=== PATIENT | female | born 1955 | race Two or more races ===

== ENCOUNTER 2025-04-01 12:40 | Inpatient (IN) | payer OTHER, MEDICAID ==
[~2025-04-01] VITALS: Ht 162.6 cm; Wt 96.6 kg
--- NOTE | 2025-04-01 13:34 | DVH ---
CT HEAD WITHOUT CONTRAST INDICATION: fall COMPARISON: None TECHNIQUE: CT of the head without intravenous contrast. RADIATION DOSE: CTDIvol: 56.21 mGy, DLP: 981.26 mGy*cm FINDINGS: There is no evidence of acute intracranial hemorrhage, extra-axial collection, mass effect, midline s hift, herniation or hydrocephalus. The ventricles, sulci and cisterns are age appropriate. The lopez -white differentiation is intact. The visualized paranasal sinuses and mastoid air cells are clear. The surrounding soft tissues and osseous structures are unremarkable. IMPRESSION: 1. No evidence of acute intracranial hemorrhage, mass effect or hydrocephalus.
[2025-04-01 13:47] LABS: Basophils # (auto) 0 10 ^3/uL (0-0.2); Basophils % (auto) 0.2 % (0.0-2.0); Eosinophils # (auto) 0.1 10 ^3/uL (0-0.8); Hemoglobin 16.3 g/dL (12.2-16.2); Lymphocytes # (auto) 2.3 10 ^3/uL (0.4-5.4); Lymphocytes % (auto) 32.5 % (10.0-50.0); Mean Corpuscular Hemoglobin 33.8 pg (28.0-32.0); Mean Corpuscular Hgb Conc. 35.4 g/dL (32.0-36.0); Mean Corpuscular Volume 95.5 fL (80.0-100.0); Monocytes # (auto) 0.8 10 ^3/uL (0-1.3); Monocytes % (auto) 10.9 % (0.0-12.0); Neutrophils # (auto) 3.9 10 ^3/uL (1.6-8.6); Neutrophils % (auto) 55.4 % (37.0-80.0); Nucleated Red Blood Cells % 0.1 %; Platelet Count (auto) 261 10^3/uL (140-450); Red Blood Cells 4.81 10^6/uL (4.0-5.20); Red Cell Distribution Width 14.4 % (11.8-14.3)
[2025-04-01 13:56] LABS: Chloride 101 mmol/L (98-107); Sodium 143 mmol/L (136-145)
[2025-04-01 13:57] LABS: Anion Gap 9 (5-15)
[2025-04-01 13:58] LABS: Calcium 9.9 mg/dL (8.7-10.4)
[2025-04-01 14:02] LABS: BUN/Creatinine Ratio 15.9 (10.0-20.0); Blood Urea Nitrogen 11 mg/dL (9-23); Glucose 94 mg/dL (74-106)
[2025-04-01 14:03] LABS: Carbon Dioxide 33 mmol/L (20-31); Potassium 3.3 mmol/L (3.5-5.1)
--- NOTE | 2025-04-01 16:23 | ED.PDOC ---
History of Present Illness HPI Comments 69-year-old female with PMHx HTN, HLD brought in by EMS presents with a chief complaint of headache and blurred vision x onset yesterday. Patient states that she went to get x-rays done yesterday and when coming off the radiology table, she fell down and hit her head. Patient is now reporting pain to her head and also some blurred vision. Patient denies any nausea, vomiting, or numbness/tingling. No other symptoms or modifying factors present at this time. 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 Family History Family History: Reviewed,noncontributory to illness Social History Smoker: Non-Smoker Alcohol: Denies ETOH Use Drugs: Denies Drug Use Lives In: Home Constitutional: denies: chills, diaphoresis, fatigue, fever, malaise, sweats, weakness, others EENTM: reports: blurred vision; denies: double vision, ear bleeding, ear discharge, ear drainage, ear pain, ear ringing, eye pain, eye redness, hearing loss, mouth pain, mouth swelling, nasal discharge, nose bleeding, nose congestion, nose pain, photophobia, tearing, throat pain, throat swelling, voice changes, others Respiratory: denies: cough, hemoptysis, orthopnea, SOB at rest, shortness of breath, SOB with excertion, stridor, wheezing, others Cardiovascular: denies: chest pain, dizzy spells, diaphoresis, Dyspnea on exertion, edema, irregular heart beat, left arm pain, lightheadedness, palpitations, PND, syncope, others Gastrointestinal: denies: abdomen distended, abdominal pain, blood streaked bowels, constipated, diarrhea, dysphagia, difficulty swallowing, hematemesis, melena, nausea, poor appetite, poor fluid intake, rectal bleeding, rectal pain, vomiting, others Genitourinary: denies: abnormal vagina bleeding, burning, dyspareunia, dysuria, flank pain, frequency, hematuria, incontinence, pain, , vagina discharge, urgency, others Neurological: reports: headache; denies: dizziness, fainting, left sided numbness, left sided weakness, numbness, paresthesia, pre-existing deficit, right sided numbness, right sided weakness, seizure, speech problems, tingling, tremors, weakness, others Musculoskeletal: denies: back pain, gout, joint pain, joint swelling, muscle pain, muscle stiffness, neck pain, others Integumetry: denies: bruises, change in color, change in hair/nails, dryness, laceration, lesions, lumps, rash, wounds, others Allergic/Immunocompromised: denies: Difficulty Healing, Frequent Infections, Hives, Itching, others Hematologic/Lymphatic: denies: anemia, blood clots, easy bleeding, easy bruising, swollen glands, others Endocrine: denies: excessive hunger, excessive sweating, excessive thirst, excessive urination, flushing, intolerance to cold, intolerance to heat, unexplained weight gain, unexplained weight loss, others Psychiatric: denies: anxiety, bipolar disorder, depression, hopeless, panic disorder, schizophrenia, sleepless, suicidal, others All Other Systems: Reviewed and Negative Physical Exam General Appearance: Moderate Distress HEENT: Normal ENT Inspection, Pharynx Normal, TMs Normal Neck: Full Range of Motion, Non-Tender, Normal, Normal Inspection Respiratory: Chest Non-Tender, Lungs Clear, No Accessory Muscle Use, No Respiratory Distress, Normal Breath Sounds Cardiovascular: No Edema, No JVD, No Murmur, No Gallop, Normal Peripheral Pulses, Regular Rate/Rhythm Breast Exam: Deferred Gastrointestinal: No Organomegaly, Non Tender, No Pulsatile Mass, Normal Bowel Sounds, Soft Genitalia: Deferred Pelvic: Deferred Rectal: Deferred Extremities: No calf tenderness, Normal capillary refill, No pedal edema Musculoskeletal : Apperance: Normal Neurologic: Alert, 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 Was a procedure done?: No EKG EKG : Pulse Rate (adult): 69 [place]: Normal Cardiac Rhythm: NSR Block: None Hypertrophy: LVH ST: Normal Differential Dx Considerations may include: Syncope, autonomic dysfunction, generalized weakness X-Ray, Labs, Meds, VS Vital Signs Date Time Temp Pulse Resp B/P (MAP) Pulse Ox O2 Delivery O2 Flow Rate FiO2 04/01/25 16:23 69 04/01/25 15:24 97.5 67 16 131/64 (86) 99 97.5 04/01/25 15:24 67 16 99 Room Air 04/01/25 12:48 98.0 73 16 151/91 (111) 98 98.0 04/01/25 12:41 69 Lab Test 04/01/25 13:17 Range/Units White Blood Count 7.0 4.4-10.8 10^3/uL Red Blood Count 4.81 4.0-5.20 10^6/uL Hemoglobin 16.3 H 12.2-16.2 g/dL Hematocrit 46.0 36.0-46.0 % Mean Corpuscular Volume 95.5 80.0-100.0 fL Mean Corpuscular Hemoglobin 33.8 H 28.0-32.0 pg Mean Corpuscular Hemoglobin Concent 35.4 32.0-36.0 g/dL Red Cell Distribution Width 14.4 H 11.8-14.3 % Platelet Count 261 140-450 10^3/uL Mean Platelet Volume 9.1 6.9-10.8 fL Neutrophils (%) (Auto) 55.4 37.0-80.0 % Lymphocytes (%) (Auto) 32.5 10.0-50.0 % Monocytes (%) (Auto) 10.9 0.0-12.0 % Eosinophils (%) (Auto) 1.0 0.0-7.0 % Basophils (%) (Auto) 0.2 0.0-2.0 % Neutrophils # (Auto) 3.9 1.6-8.6 10 ^3/uL Lymphocytes # (Auto) 2.3 0.4-5.4 10 ^3/uL Monocytes # (Auto) 0.8 0-1.3 10 ^3/uL Eosinophils # (Auto) 0.1 0-0.8 10 ^3/uL Basophils # (Auto) 0 0-0.2 10 ^3/uL Nucleated Red Blood Cells 0.1 % Sodium Level 143 136-145 mmol/L Potassium Level 3.3 L 3.5-5.1 mmol/L Chloride Level 101 98-107 mmol/L Carbon Dioxide Level 33 H 20-31 mmol/L Anion Gap 9 5-15 Blood Urea Nitrogen 11 9-23 mg/dL Creatinine 0.69 0.550-1.02 mg/dL Glomerular Filtration Rate Calc 93 >90 mL/min BUN/Creatinine Ratio 15.9 10.0-20.0 Serum Glucose 94 74-106 mg/dL Calcium Level 9.9 8.7-10.4 mg/dL IV Hep-Lock has been established The CBC and chemistry panel shows hypokalemia at 3.3 The patient was given potassium 40 mEq p.o. The CAT scan of the head shows no sign of any acute bleed At this time, the patient is being admitted with a diagnosis of autonomic dysfunction and blunt head trauma There is a concern because this patient is still somewhat unsteady on her gait Images Reviewed?: Images reviewed and evaluated by me Time of 1ST Reevaluation: 16:48 Reevaluation 1ST: Unchanged Time of 2ND Reevaluation: 17:55 Reevaluation 2ND: Unchanged Patient Education/Counseling: Diagnosis, Treatment, Prognosis Family Education/Counseling: No Family Present Departure 1 Departure Time of Disposition: 17:55 Impression: Primary Impression: Autonomic dysfunction Additional Impressions: Generalized weakness Blunt head trauma Qualified Codes: S09.8XXA - Other specified injuries of head, initial encounter Disposition: ADMITTED INPATIENT Admit to: [facility] Condition: Fair Critical Care Note Critical Care Time?: Yes (45 min-critical care time only) Stability Stability form required: Yes Unstable for transfer: ED Physician Assesment (Clinical assesment) Heart Score Heart Score: Heart Score Response (Comments) Value History N/A 0 EKG N/A 0 Age N/A 0 Risk Factors N/A 0 Troponin N/A 0 Total 0 I personally scribed for AIMEE BURGOS MD ([email or web address]) on 04/01/25 at 16:23. Electronically submitted by Polo Baird ([email or web address]). AIMEE BURGOS MD Apr 01, 2025 16:23
[2025-04-01] MEDS: POTASSIUM CHL 20 Meq TABLET PO ONE (18:11)
[2025-04-01] MEDS: CYCLOBENZAPRINE HCL 10 MG TAB PO ONE (23:00)
[2025-04-01] MEDS: ACETAMINOPHEN 325 MG TAB PO ONE (23:00)
[2025-04-01] MEDS: SODIUM CHLORIDE 0.9% 500 ML IV ONE (23:00)
[2025-04-01] MEDS: KETOROLAC TROMETH 30 MG/ML 1ML VIAL IV ONE (23:00)
[2025-04-01] MEDS: SODIUM CHLORIDE 0.9% 1,000 ML IV ONE (23:00)
[2025-04-01 23:25] LABS: Cholesterol 203 mg/dL (< 200); HDL Cholesterol 47 mg/dL (40-59); LDL Cholesterol 136 mg/dL (< 100); Triglycerides 162 mg/dL (< 150)
[2025-04-02] VITALS (10 sets, daily range): BP systolic 123–136; BP diastolic 50–70; PULSE 69–95; RESP 18–20; TEMP 97.8–98.6; O2SAT 92–95
--- NOTE | 2025-04-02 00:29 | DVHHPRES ---
History of Present Illness Resident Creating Document: KODI RAMOS RESIDENT History of Present Illness This is a 69-year-old female with past medical history of hypertension, dyslipidemia, thyroid nodules who presented to the ED with chief complaint of presyncopal event associated with fall injury. The patient states that one day bag before coming to the ED she was doing routinely DEXA scan of the radiologist referred by her PCP, when she got out of the bed to stand up she started feeling dizziness, blurry vision and had a syncopal event without loss of consciousness. At that time, the patient fall in the right side hitting the head in the right temporal area, right shoulder and right upper back. The patient states that remember all the details of the event and people surrounding her denies any seizure or loss of consciousness. Upon admission, CBC and BNP were grossly unremarkable except for mild hypokalemia. Patient still reports mild to m oderate right-sided headache and pain in the right shoulder and right scapula. Patient has bruising in the right upper arm and right side of the scapula. A CT scan of the head showed no evidence of intracranial hemorrhage, mass effect or hydrocephalus. Initial EKG showed sinus rhythm with no ST segment elevation or depression. Patient denies palpitations, chest pain, shortness of breath or any other associated symptoms. On my examination, orthostatic vitals were evaluated in a sitting position the blood pressure was 153/66 mmhg with a pulse of 71 and in the upright position blood pressure was 139/76 mmHg and pulse was 81. We w ill admit the patient for further assessment and management. Past medical history: Hypertension, dyslipidemia, thyroid nodules Home medications: Losartan 100 mg daily, hydrochlorothiazide 25 mg daily Surgical history: and fallopian tube ligation Social history: Denies drug consumption, alcohol or smoking. Lives with family Cardiovascular: HTN, hyperipidemia Endocrine: Other (Thyroid nodules) Past Surgical History: , Tubal Ligation Family History: None Smoke: No ALCOHOL: none Drugs: None Lives: with Family Domestic Violence: Neg Review of Systems Constitutional: No: Fever, Chills, Sweats, Weakness, Malaise, Other Eyes: No: Pain, Vision change, Conjunctivae inflammation, Eyelid inflammation, Other, Redness ENT: Other (Headaches especially in the right side temporal region); No: Ear pain, Ear discharge, Nose pain, Nose discharge, Nose congestion, Mouth pain, Mouth swelling, Throat pain, Throat swelling Respiratory: No: Cough, Dry, Shortness of breath, SOB with excertion, Wheezing, Hemoptysis, Pleuritic Pain, Sputum, Wheezing, Other Cardiovascular: No: Chest Pain, Palpitations, Orthopnea, Paroxysmal Noc. Dyspnea, Edema, Lt Headedness, Other Gastrointestinal: No: Nausea, Vomiting, Abdominal Pain, Diarrhea, Constipation, Melena, Hematochezia, Other Genitourinary: No Dysuria, No Frequency, No Incontinence, No Hematuria, No Retention, No Other Musculoskeletal: shoulder pain (Right shoulder pain), back pain (Right upper back pain at the level of the right scapula); No: other, neck pain, arm pain, hand pain, leg pain, foot pain Skin: No: Rash, Lesions, Jaundice, Bruising, Other Neurological: No: Weakness, Numbness, Incoordination, Change in speech, Confusion, Seizures, Other Allergies: Coded Allergies: NO KNOWN ALLERGIES (Unverified , 04/01/25) Medications Current Medications Medications Dose Ordered Sig/Lisa Route Start Time Stop Time Status Last Admin Dose Admin Acetaminophen 650 mg Q6HP PRN PO 04/01/25 23:00 Acetaminophen/ Hydrocodone Bitart 1 tab Q4HP PRN PO 04/01/25 23:00 Enoxaparin Sodium 40 mg DAILY SC 04/02/25 10:00 Cyclobenzaprine HCl 10 mg DAILY PO 04/02/25 10:00 Exam Vital Signs Vital Signs Date Time Temp Pulse Resp B/P (MAP) Pulse Ox O2 Delivery O2 Flow Rate FiO2 04/01/25 22:17 69 04/01/25 21:43 98.6 12 151/67 (95) 95 98.6 04/01/25 15:24 Room Air General Appearance: Alert, Oriented X3, Cooperative, No acute distress HEENT: Atraumatic, PERRLA, EOMI, Mucous membr. moist/pink, Other (Headache located in the right temporal lobe, there is a bruise in the right upper arm and right-sided scapula) Respiratory: Clear to auscultation, Normal air movement Cardiovascular: Regular rate, Normal S1, Normal S2, No murmurs Abdominal: Normal bowel sounds, Soft, No tenderness, No hepatospenomegaly, No masses Extremities: No clubbing, No cyanosis, No edema, Normal pulses, No tenderness/swelling, Other (there is a bruise in the right upper arm and right- sided scapula) Skin: No rashes (There are bruises in the right upper arm and right-sided s capula) Neuro: Normal gait, Normal speech, Strength at 5/5 X4 ext, Normal tone, Sensation intact, Cranial nerves 3-12 NL, Reflexes 2+ Psych/Mental Status: Mental status NL, Mood NL Labs/Xrays Labs Test 04/01/25 13:17 Range/Units White Blood Count 7.0 4.4-10.8 10^3/uL Red Blood Count 4.81 4.0-5.20 10^6/uL Hemoglobin 16.3 H 12.2-16.2 g/dL Hematocrit 46.0 36.0-46.0 % Mean Corpuscular Volume 95.5 80.0-100.0 fL Mean Corpuscular Hemoglobin 33.8 H 28.0-32.0 pg Mean Corpuscular Hemoglobin Concent 35.4 32.0-36.0 g/dL Red Cell Distribution Width 14.4 H 11.8-14.3 % Platelet Count 261 140-450 10^3/uL Mean Platelet Volume 9.1 6.9-10.8 fL Neutrophils (%) (Auto) 55.4 37.0-80.0 % Lymphocytes (%) (Auto) 32.5 10.0-50.0 % Monocytes (%) (Auto) 10.9 0.0-12.0 % Eosinophils (%) (Auto) 1.0 0.0-7.0 % Basophils (%) (Auto) 0.2 0.0-2.0 % Neutrophils # (Auto) 3.9 1.6-8.6 10 ^3/uL Lymphocytes # (Auto) 2.3 0.4-5.4 10 ^3/uL Monocytes # (Auto) 0.8 0-1.3 10 ^3/uL Eosinophils # (Auto) 0.1 0-0.8 10 ^3/uL Basophils # (Auto) 0 0-0.2 10 ^3/uL Nucleated Red Blood Cells 0.1 % Sodium Level 143 136-145 mmol/L Potassium Level 3.3 L 3.5-5.1 mmol/L Chloride Level 101 98-107 mmol/L Carbon Dioxide Level 33 H 20-31 mmol/L Anion Gap 9 5-15 Blood Urea Nitrogen 11 9-23 mg/dL Creatinine 0.69 0.550-1.02 mg/dL Glomerular Filtration Rate Calc 93 >90 mL/min BUN/Creatinine Ratio 15.9 10.0-20.0 Serum Glucose 94 74-106 mg/dL Hemoglobin A1c 5.8 H <5.7 % A1C Calcium Level 9.9 8.7-10.4 mg/dL Triglycerides Level 162 H < 150 mg/dL Cholesterol Level 203 H < 200 mg/dL LDL Cholesterol 136 H < 100 mg/dL HDL Cholesterol 47 40-59 mg/dL Assessment/Plan Assessment/Plan Assessment/plan Acute presyncopal event likely vasovagal R/O Orthostatic hypotension R/O cardiac etiology Acute fall injury likely due to above R/O right hip dislocation/fracture Hypokalemia Primary hypertension Dyslipidemia Prediabetes History of thyroid nodules Plan -CT scan of the head showed no evidence of intracranial hemorrhage, mass effect or hydrocephalus -orthostatic vital signs were: Sitting position blood pressure was 153/66 mmHg and pulse was 71. Upright position blood pressure was 139/76 mmHg pulse was 81 -EKG showed sinus rhythm with no ST segment elevation or depression -ordered echocardiogram -start IV fluids bolus and maintenance -pain management with ketorolac and acetaminophen one dose. -cyclobenzaprine 10 mg daily -ordered right hip x-ray -DVT prophylaxis -physical therapy Goals of care discussed with the patient at bedside for >30min, FULL CODE Plan discussed with Dr. Galindo Plan discussed with: Patient My Orders Orders - KODI RAMOS RESIDENT Procedure Category Date Status Time Admit ADMIT 04/01/25 Transmitted 22:53 Code Status CODE 04/01/25 Transmitted 22:53 Vital Signs LUIS ANTONIO 04/01/25 In Process 22:53 Review Orders With LUIS ANTONIO 04/01/25 In Process Adm. 22:53 Encourage Activity As LUIS ANTONIO 04/01/25 In Process Tolerate 22:53 Regular Diet DIET 04/02/25 Transmitted Breakfast Acetaminophen Tablet PHA 04/01/25 In Process (Tylenol Tablet) 23:00 Notify Of Changes LUIS ANTONIO 04/01/25 In Process From Base 22:53 Advance Directive LUIS ANTONIO 04/01/25 In Process 22:53 Echo 2d Mode Cardiac US 04/01/25 Logged DOP 22:53 Complete Blood Count LAB 04/02/25 Logged 04:00 Patient Condition ORDERS 04/01/25 Transmitted 22:53 Allergies LUIS ANTONIO 04/01/25 In Process 22:53 Hydrocodone-Acet PHA 04/01/25 In Process 5/325mg Tab ([place] 23:00 Drug Screen LAB 04/01/25 Logged 22:53 Enoxaparin Sodium PHA 04/02/25 In Process (Lovenox) 10:00 Comprehensive LAB 04/02/25 Logged Metabolic Panel 04:00 Sodium Chloride 0.9% PHA 04/01/25 In Process 23:00 Cyclobenzaprine PHA 04/02/25 In Process Tablet (Flexeril 10:00 R Hip Complete Xray XY 04/01/25 Taken 23:01 Date of Service: Apr 01, 2025 Billing Provider: JEANETTE GALINDO MD Common Visit Codes: [id number] INP/OBS CARE (HIGH) Secondary Visit Codes: 21219-[id number] CARE PLAN 30 MINUTES KODI RAMOS RESIDENT Apr 02, 2025 00:29
[2025-04-02] MEDS: HYDROcodone-ACET 5/325MG TAB PO PRN (03:05)
--- NOTE | 2025-04-02 03:07 | DVH ---
XY R HIP COMPLETE XRAY, INDICATION: R/O Fracture or dislocation TECHNICAL DATA: 3 views of the right hip were obtained to include the pelvis COMPARISON: None IMPRESSION: Pelvic ring appears intact. No acute fracture or dislocation. The right hip appears unremarkable.
--- NOTE | 2025-04-02 07:35 | ECG ---
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
[2025-04-02 07:42] LABS: Basophils # (auto) 0 10 ^3/uL (0-0.2); Basophils % (auto) 0.4 % (0.0-2.0); Eosinophils # (auto) 0.1 10 ^3/uL (0-0.8); Eosinophils % (auto) 1.4 % (0.0-7.0); Hematocrit 45.1 % (36.0-46.0); Hemoglobin 15.2 g/dL (12.2-16.2); Lymphocytes # (auto) 2.4 10 ^3/uL (0.4-5.4); Mean Corpuscular Hemoglobin 32.6 pg (28.0-32.0); Mean Corpuscular Hgb Conc. 33.8 g/dL (32.0-36.0); Mean Corpuscular Volume 96.5 fL (80.0-100.0); Monocytes # (auto) 0.7 10 ^3/uL (0-1.3); Neutrophils # (auto) 2.9 10 ^3/uL (1.6-8.6); Neutrophils % (auto) 47.2 % (37.0-80.0); Nucleated Red Blood Cells % 0.2 %; Platelet Count (auto) 258 10^3/uL (140-450); Red Blood Cells 4.67 10^6/uL (4.0-5.20); Red Cell Distribution Width 14.5 % (11.8-14.3); White Blood Cell 6.1 10^3/uL (4.4-10.8)
[2025-04-02] MEDS: ENOXAPARIN SOD 40 MG/0.4 ML SYRINGE SC SCH (10:24)
[2025-04-02] MEDS: ACETAMINOPHEN 325 MG TAB PO PRN (10:25)
[2025-04-02] MEDS: CYCLOBENZAPRINE HCL 10 MG TAB PO SCH (10:25)
[2025-04-02 12:18] LABS: Alanine Aminotransferase 16 U/L (7-40); Albumin 4.2 g/dL (3.2-4.8); Alkaline Phosphatase 63 U/L (46-116); Anion Gap 10 (5-15); Aspartate Aminotransferase 17 U/L (<34); BUN/Creatinine Ratio 15.1 (10.0-20.0); Blood Urea Nitrogen 11 mg/dL (9-23); Calcium 9.9 mg/dL (8.7-10.4); Carbon Dioxide 29 mmol/L (20-31); Chloride 104 mmol/L (98-107); Sodium 143 mmol/L (136-145); Total Protein 6.9 g/dL (5.7-8.2)
[2025-04-02 12:21] LABS: Bilirubin, Total 1.5 mg/dL (0.2-1.0); Glucose 107 mg/dL (74-106); Potassium 3.1 mmol/L (3.5-5.1)
[2025-04-02] MEDS: POTASSIUM EFFERVESENT TAB 25 MEQ PO ONE (20:33)
--- NOTE | 2025-04-02 21:45 | DVHPNRES ---
Progress Note Date Seen: Apr 03, 2025 Resident Creating Document: CHADD NEWTON RESDIENT Medical Necessity Reason Pt with a Central, PICC or Fol: No Subjective Review of Systems This is a 69-year-old female with past medical history of hypertension, dyslipidemia, thyroid nodules who presented to the ED with chief complaint of presyncopal event associated with fall injury. The patient states that one day bag before coming to the ED she was doing routinely DEXA scan of the radiologist referred by her PCP, when she got out of the bed to stand up she started feeling dizziness, blurry vision and had a syncopal event without loss of consciousness. At that time, the patient fall in the right side hitting the head in the right temporal area, right shoulder and right upper back. The patient states that remember all the details of the event and people surrounding her denies any seizure or loss of consciousness. Upon admission, CBC and BNP were grossly unremarkable except for mild hypokalemia. Patient still reports mild to moderate right-sided headache and pain in the right shoulder and right scapula. Patient has bruising in the right upper arm and right side of the scapula. A CT scan of the head showed no evidence of intracranial hemorrhage, mass effect or hydrocephalus. Initial EKG showed sinus rhythm with no ST segment elevation or depression. Patient denies palpitations, chest pain, shortness of breath or any other associated symptoms. On my examination, orthostatic vitals were evaluated in a sitting position the blood pressure was 153/66 mmhg with a pulse of 71 and in the upright position blood pressure was 139/76 mmHg and pulse was 81. We will admit the patient for further assessment and management. Past medical history: Hypertension, dyslipidemia, thyroid nodules Home medications: Losartan 100 mg daily, hydrochlorothiazide 25 mg daily Patient seen and examined at the patient is feeling better since admission. Still complained of shoulder and right hip pain. Patient reports: No new complaints, Feels better Changes from previous H/P or p: Changes Objective vital signs Vital Sign Date Time Temp Pulse Resp B/P (MAP) Pulse Ox O2 Delivery O2 Flow Rate FiO2 04/02/25 17:16 98.1 77 18 129/60 (83) 94 98.1 04/02/25 08:00 Room Air* 0 21 Total Intake and Output 04/01/25 04/01/25 04/02/25 15:00 23:00 07:00 Intake Total 500 ml Balance 500 ml medications Current Medications Medications Dose Ordered Sig/Lisa Route Start Time Stop Time Status Last Admin Dose Admin Acetaminophen 650 mg Q6HP PRN PO 04/01/25 23:00 04/02/25 10:25 650 MG Acetaminophen/ Hydrocodone Bitart 1 tab Q4HP PRN PO 04/01/25 23:00 04/02/25 03:05 1 TAB Enoxaparin Sodium 40 mg DAILY SC 04/02/25 10:00 04/02/25 10:24 40 MG Cyclobenzaprine HCl 10 mg DAILY PO 04/02/25 10:00 04/02/25 10:25 10 MG Examination Constitutional: No: Fever, Chills, Sweats, Weakness, Malaise, Other Eyes: No: Pain, Vision change, Conjunctivae inflammation, Eyelid inflammation, Other, Redness ENT: Other (Headaches especially in the right side temporal region); No: Ear pain, Ear discharge, Nose pain, Nose discharge, Nose congestion, Mouth pain, Mouth swelling, Throat pain, Throat swelling Respiratory: No: Cough, Dry, Shortness of breath, SOB with excertion, Wheezing, Hemoptysis, Pleuritic Pain, Sputum, Wheezing, Other Cardiovascular: No: Chest Pain, Palpitations, Orthopnea, Paroxysmal Noc. Dyspnea, Edema, Lt Headedness, Other Gastrointestinal: No: Nausea, Vomiting, Abdominal Pain, Diarrhea, Constipation, Melena, Hematochezia, Other Genitourinary: No Dysuria, No Frequency, No Incontinence, No Hematuria, No Retention, No Other Musculoskeletal: shoulder pain (Right shoulder pain), back pain (Right upper back pain at the level of the right scapula); No: other, neck pain, arm pain, hand pain, leg pain, foot pain Skin: No: Rash, Lesions, Jaundice, Bruising, Other Neurological: No: Weakness, Numbness, Incoordination, Change in speech, Confusion, Seizures, Other laboratory and microbiology Laboratory Tests 04/02/25 05:51 Test 04/02/25 05:51 Range/Units Serum Glucose 107 H 74-106 mg/dL Labs and/or images reviewed: Labs reviewed by me, Image(s) reviewed by me Problem List/Assessment/Plan Problem List/Assessment/Plan Presyncope, likely vasovagal Status post fall Intractable showed the any hip pain, likely due to fall Hypokalemia Hypertension Dyslipidemia Prediabetes History of thyroid gland Ruled out right hip dislocation/fracture * Head CT scan shows no intracranial abnormalities * Hip x-ray shows no acute fracture/displacement * EKGs shows normal sinus rhythm and no significant ST or T-wave changes Plan/recommendation * Check orthostatic vitals * IV fluid * Continue home meds * Echocardiogram DIET: Regular diet DVT PROPHYLAXIS: Lovenox CODE STATUS: Goal of care discussed for more than 18 minutes, full code DISPOSITION: Med/surge Patient's status and plan discussed with the patient. Case discussed with Dr. Retana. Plan discussed with: Patient, Other (RN) My Orders My Orders Orders - CHADD NEWTON Procedure Category Date Status Time Orthostatic Vital ORDERS 04/02/25 Transmitted Signs 07:45 Date of Service: Apr 03, 2025 Billing Provider: UDAY RETANA MD Common Visit Codes: [id number] INP/OBS CARE(HIGH) CHADD NEWTON RESDIENT Apr 02, 2025 21:45 UDAY RETANA MD Apr 06, 2025 21:03
[2025-04-03] VITALS (8 sets, daily range): BP systolic 110–141; BP diastolic 50–72; PULSE 66–79; RESP 16–20; TEMP 97.1–98.4; O2SAT 94–99
[2025-04-03 07:06] LABS: Anion Gap 8 (5-15); Carbon Dioxide 31 mmol/L (20-31); Chloride 104 mmol/L (98-107); Sodium 143 mmol/L (136-145)
[2025-04-03 07:07] LABS: Calcium 9.8 mg/dL (8.7-10.4)
[2025-04-03 07:10] LABS: Basophils # (auto) 0 10 ^3/uL (0-0.2); Basophils % (auto) 0.5 % (0.0-2.0); Eosinophils # (auto) 0.1 10 ^3/uL (0-0.8); Eosinophils % (auto) 1.4 % (0.0-7.0); Hematocrit 44.7 % (36.0-46.0); Hemoglobin 15.4 g/dL (12.2-16.2); Lymphocytes # (auto) 2.4 10 ^3/uL (0.4-5.4); Lymphocytes % (auto) 41.5 % (10.0-50.0); Mean Corpuscular Hemoglobin 33.2 pg (28.0-32.0); Mean Corpuscular Hgb Conc. 34.4 g/dL (32.0-36.0); Mean Corpuscular Volume 96.5 fL (80.0-100.0); Monocytes # (auto) 0.7 10 ^3/uL (0-1.3); Monocytes % (auto) 12.7 % (0.0-12.0); Neutrophils # (auto) 2.5 10 ^3/uL (1.6-8.6); Neutrophils % (auto) 43.9 % (37.0-80.0); Nucleated Red Blood Cells % 0.1 %; Platelet Count (auto) 240 10^3/uL (140-450); Potassium 3.4 mmol/L (3.5-5.1); Red Blood Cells 4.63 10^6/uL (4.0-5.20); Red Cell Distribution Width 14.5 % (11.8-14.3); White Blood Cell 5.7 10^3/uL (4.4-10.8)
[2025-04-03 07:12] LABS: BUN/Creatinine Ratio 15.8 (10.0-20.0); Blood Urea Nitrogen 12 mg/dL (9-23); Glucose 98 mg/dL (74-106)
[2025-04-03] MEDS: LOSARTAN POTASSIUM 50 MG TAB PO SCH (09:42)
--- NOTE | 2025-04-03 15:59 | DVHPN2 ---
Assessment/Plan Assessment/Plan progress note seen during rounds, pain improved. pendung dvtus Physical exam aox4 obese PERRLA MMM s1 s2 rrr CTAB le edema R>L Labs ekg imaging reviewed Assessment and plan Presyncope, likely vasovagal Status post fall Intractable showed the any hip pain, likely due to fall Hypokalemia Hypertension Dyslipidemia Prediabetes History of thyroid gland Ruled out right hip dislocation/fracture dvt us resume home meds echo diet reg dvt ppx lovenox Plan discussed with: Patient My Orders Orders - UDAY RETANA MD Procedure Category Date Status Time Orthostatic Vital ORDERS 04/03/25 Transmitted Signs 13:19 Date of Service: Apr 03, 2025 Billing Provider: UDAY RETANA MD Common Visit Codes: [id number] INP/OBS CARE(HIGH) UDAY RETANA MD Apr 03, 2025 15:59
--- NOTE | 2025-04-03 16:35 | DVH ---
Bilateral lower extremity venous duplex Clinical History: LE edema R>L Comparison: None Technique: Duplex Doppler evaluation of the deep venous systems of both lower extremities from the common femora l veins to the popliteal veins including color Doppler and spectral/pulsed waveform analysis was perf ormed. Findings: RIGHT SIDE: The common femoral vein demonstrates appropriate compressibility and waveform variability. There is compressibility/patency of the great saphenous vein at the proximal thigh. The femoral vein demonstrates appropriate compressibility and waveform variability. The deep femoral vein demonstrates appropriate compressibility and waveform variability. The popliteal vein demonstrates appropriate compressibility and waveform variability. There is normal compressibility at the tibioperoneal trunk. LEFT SIDE: The common femoral vein demonstrates appropriate compressibility and waveform variability. There is compressibility/patency of the great saphenous vein at the proximal thigh. The femoral vein demonstrates appropriate compressibility and waveform variability. The deep femoral vein demonstrates appropriate compressibility and waveform variability. The popliteal vein demonstrates appropriate compressibility and waveform variability. There is normal compressibility at the tibioperoneal trunk. Impression: 1. No right or left femoropopliteal venous thrombosis.
[2025-04-04 01:00] VITALS: BP 126/67; PULSE 71; RESP 16; TEMP 97.9; O2SAT 97
[2025-04-04 05:00] VITALS: BP 132/70; PULSE 68; RESP 16; TEMP 97.5; O2SAT 97
[2025-04-04 08:07] VITALS: PULSE 68; RESP 16; O2SAT 97
[2025-04-04 08:45] VITALS: BP 129/61; PULSE 72; RESP 16; TEMP 97.6; O2SAT 96
[2025-04-04] MEDS: POTASSIUM EFFERVESENT TAB 25 MEQ PO ONE (09:40)
[2025-04-04] MEDS: POTASSIUM CHLORIDE 20 MEQ, LIDOCAINE 1% (LOCAL ANESTH.) 2 ML in SODIUM CHL 0.9% 100 ML IV ONE (09:58)
[2025-04-04 13:16] VITALS: BP 115/54; PULSE 74; RESP 16; TEMP 97.8; O2SAT 96
--- NOTE | 2025-04-04 13:55 | DVHSR ---
APPROVED REPORT EXAM: Two-dimensional and M-mode echocardiogram with Doppler and color Doppler. Blood Pressure: 141/61 mmHg INDICATION r/o cariogenic syncope, structural heart RISK FACTORS Height: 5'4, Weight: 198 DIMENSIONS LVDd4.1 (3.8-5.7cm)LA (2D)2.7 (1.9-4.0cm)Aortic Root2.9 (2.0-3.7cm) LVDs2.3 (2.5-4.0cm)LA (MM) (1.9-4.0cm)Aortic Cusp Exc1.8 (1.5-2.0cm) EF (%) 65.0 (55-70%)Rt. Atrium4.3 (1.9-4.0cm)Asc. Aorta2.9 cm IVSd0.9 (0.7-1.1cm)RV (D)3.8 (1.8-2.4cm) PWd0.8 (0.7-1.1cm) Mitral Valve MitralMitral Stenosis E wave0.68m/sMV Mean GR.mmHg A wave0.76m/sMV Peak GR.mmHg E/A ratio0.92D MVAcm2 DECEL [id number] 1/2 Timems Aortic Valve Aortic ValveAortic Stenosis V11.10m/Cortney Mean GR.5mmHg V21.44m/Cortney Peak GR.8mmHg LVOT Diameter2.0 (1.8-2.4cm)Doppler AVA2.40cm2 Pulmonic Valve V20.86m/s Conclusion Sinus rhythm. Right atrial and right ventricular enlargement. Valves are normal. EF of 60% with normal RV function. Dopplers unremarkable. No pericardial effusion masses or vegetations.
[2025-04-04 14:37] VITALS: BP 129/61; TEMP 36.6
--- NOTE | 2025-04-04 15:22 | DVHDSRES ---
Discharge Summary Date of Admission Resident Creating Document: CHADD NEWTON RESDIENT Apr 01, 2025 at 22:53 Date of Discharge: Apr 04, 2025 Admitting Diagnosis Syncope Labs/Diagnostic Data: Laboratory Results Test 04/04/25 08:55 04/03/25 06:29 04/02/25 05:51 04/01/25 13:17 Magnesium Level 2.3 mg/dL (1.6-2.6) B-Type Natriuretic Peptide 8.08 pg/mL (0-100) Thyroid Stimulating Hormone (TSH) 1.24 uIU/mL (0.55-4.78) White Blood Count 5.7 10^3/uL (4.4-10.8) Red Blood Count 4.63 10^6/uL (4.0-5.20) Hemoglobin 15.4 g/dL (12.2-16.2) Hematocrit 44.7 % (36.0-46.0) Mean Corpuscular Volume 96.5 fL (80.0-100.0) Mean Corpuscular Hemoglobin 33.2 pg (28.0-32.0) Mean Corpuscular Hemoglobin Concent 34.4 g/dL (32.0-36.0) Red Cell Distribution Width 14.5 % (11.8-14.3) Platelet Count 240 10^3/uL (140-450) Mean Platelet Volume 9.0 fL (6.9-10.8) Neutrophils (%) (Auto) 43.9 % (37.0-80.0) Lymphocytes (%) (Auto) 41.5 % (10.0-50.0) Monocytes (%) (Auto) 12.7 % (0.0-12.0) Eosinophils (%) (Auto) 1.4 % (0.0-7.0) Basophils (%) (Auto) 0.5 % (0.0-2.0) Neutrophils # (Auto) 2.5 10 ^3/uL (1.6-8.6) Lymphocytes # (Auto) 2.4 10 ^3/uL (0.4-5.4) Monocytes # (Auto) 0.7 10 ^3/uL (0-1.3) Eosinophils # (Auto) 0.1 10 ^3/uL (0-0.8) Basophils # (Auto) 0 10 ^3/uL (0-0.2) Nucleated Red Blood Cells 0.1 % Sodium Level 143 mmol/L (136-145) Potassium Level 3.4 mmol/L (3.5-5.1) Chloride Level 104 mmol/L (98-107) Carbon Dioxide Level 31 mmol/L (20-31) Anion Gap 8 (5-15) Blood Urea Nitrogen 12 mg/dL (9-23) Creatinine 0.76 mg/dL (0.550-1.02) Glomerular Filtration Rate Calc 84 mL/min (>90) BUN/Creatinine Ratio 15.8 (10.0-20.0) Serum Glucose 98 mg/dL (74-106) Calcium Level 9.8 mg/dL (8.7-10.4) Total Bilirubin 1.5 mg/dL (0.2-1.0) Aspartate Amino Transferase (AST) 17 U/L (<34) Alanine Aminotransferase (ALT) 16 U/L (7-40) Alkaline Phosphatase 63 U/L (46-116) Total Protein 6.9 g/dL (5.7-8.2) Albumin 4.2 g/dL (3.2-4.8) Hemoglobin A1c 5.8 % A1C (<5.7) Triglycerides Level 162 mg/dL (< 150) Cholesterol Level 203 mg/dL (< 200) LDL Cholesterol 136 mg/dL (< 100) HDL Cholesterol 47 mg/dL (40-59) Other Laboratory Tests 04/03/25 06:29 Brief Hx & Hospital Course: This is a 69-year-old female with past medical history of hypertension, dyslipidemia, thyroid nodules who presented to the ED with chief complaint of presyncopal event associated with fall injury. The patient states that one day bag before coming to the ED she was doing routinely DEXA scan of the radiologist referred by her PCP, when she got out of the bed to stand up she started feeling dizziness, blurry vision and had a syncopal event without loss of consciousness. At that time, the patient fall in the right side hitting the head in the right temporal area, right shoulder and right upper back. The patient states that remember all the details of the event and people surrounding her denies any seizure or loss of consciousness. Upon admission, CBC and BNP were grossly unremarkable except for mild hypokalemia. Patient still reports mild to moderate right-sided headache and pain in the right shoulder and right scapula. Patient has bruising in the right upper arm and right side of the scapula. A CT scan of the head showed no evidence of intracranial hemorrhage, mass effect or hydrocephalus. Initial EKG showed sinus rhythm with no ST segment elevation or depression. Patient denies palpitations, chest pain, shortness of breath or any other associated symptoms. On my examination, orthostatic vitals were evaluated in a sitting position the blood pressure was 153/66 mmhg with a pulse of 71 and in the upright position blood pressure was 139/76 mmHg and pulse was 81. We will admit the patient for further assessment and management. Past medical history: Hypertension, dyslipidemia, thyroid nodules Home medications: Losartan 100 mg daily, hydrochlorothiazide 25 mg daily Hospital course: Patient was admitted at the line of presyncope, likely due to vasovagal. Patient was given IV fluid, and check postural vitals, (which showed no significant blood pressure dropped). Echocardiogram performed shows, EF 60% with no significant valvular finding. EKGs showed normal sinus rhythm and no significant ST or T-wave changes. Patient was observed on telemetry for 48 hours, showed no evidence of arrhythmia. Head CT scan showed no intracranial abnormalities. Due to right hip pain, x-ray was was performed and showed no acute fracture/displacement. During hospital admission home meds were continued. On 04/04/2025, the patient was feeling better since admission. Discharge plan discussed with the patient and the patient discharged home. Discharge plan: Follow up with the PCP within 1 week of the discharge. Continue home med Condition at Discharge: Good Final Diagnosis/Problems List Presyncope, likely vasovagal Status post fall Intractable showed the any hip pain, likely due to fall Hypokalemia Hypertension Autonomic dysfunction Blunted head trauma , with no significant injury Generalized weakness, likely due to mechanical fall Dyslipidemia Prediabetes History of thyroid gland Ruled out right hip dislocation/fracture Discharge Disposition: Home Discharge Instruct/Medications Diet: Cardiac 2g Na,low cholest Activity: No Restrictions, As Tolerated Follow Up/Referral: Follow up with the PCP within 1 week of the discharge Medications: Tablet ibuprofen 400 mg b.i.d. as needed for the pain Continue home med Discharge Statement: "Patient was advised to return to the ER or call 911 if any headaches, dizziness, shortness of breath, chest pain, abdominal pain, bleeding, fevers, or worsening of medical condition. Patient was counseled about treatment plan, medications, possible side effects, patientverbalized understanding. All questions were answered to the best of my ability. This discharge took greater then 30 minutes in planning, reviewing documentation, counseling the patient, and discussing with other team members." ASSESSMENT ASSESSMENT Assessment Syncope Date of Service: Apr 04, 2025 Billing Provider: UDAY RETANA MD Common Visit Codes: 82654-NXY/OBS DISCH DAY >30min CHADD NEWTON RESDIENT Apr 04, 2025 15:22 UDAY RETANA MD Apr 06, 2025 21:19
--- NOTE | 2025-04-06 12:39 | ECG ---
[facility] Test Date: 2025-04-01 Test Time: 22:17:22 Pat Name: PAVEL BRITTON Department: ER Room: 0293 B Gender: F Client Care Specialist: CODY : [id number] Requested By: AIMEE BURGOS Order Number: [id number] Reading MD: Edy Piña Measurements Intervals [place] Rate: 69 P: 41 [place]: 167 QRS: -2 QRSD: 90 T: 16 QT: 461 QTc: 494 Interpretive Statements Sinus rhythm LVH by voltage Inferior infarct, age indeterminate Electronically Signed On 04-06-2025 17:27:43 PDT by Edy Piña Please click the below link to view image of tracing.
== END 2025-04-04 15:37 | disposition home or self-care (01) | DRG 74 ==
LOC: ER 12:45 → OVERFLOW 22:53 → WEST WING 22:58
PROVIDERS: ADMIT Student in an Organized Health Care Education/Training Program; ATTEND Emergency Medicine
DX: G90.89 Other disorders of autonomic nervous system (principal); E78.5 Hyperlipidemia, unspecified; E87.6 Hypokalemia; I10 Essential (primary) hypertension; S09.90XA Unspecified injury of head, initial encounter; X58.XXXA Exposure to other specified factors, initial encounter; H53.8 Other visual disturbances; R73.03 Prediabetes; Z98.891 History of uterine scar from previous surgery; Z98.51 Tubal ligation status; Y93.89 Activity, other specified; Y92.89 Other specified places as the place of occurrence of the external cause; Y99.8 Other external cause status
CPT/HCPCS: 36415; 70450; 73502; 80048; 80053; 80061; 83036; 83735; 83880; 84443; 85025; 93005; 93306; 93970; 97110; 97116; 97163; 97530; 99291; G0378; J2003